=== PATIENT | male | born 1970 | race Caucasian/White ===

== ENCOUNTER 2020-06-17 11:47 | Inpatient (IN) | payer OTHER, SELFPAY ==
[2020-06-17] VITALS (20 sets, daily range): BP systolic 99–120; BP diastolic 44–74; PULSE 77–103; RESP 10–26; TEMP 36.8–38.8; O2SAT 91–100; BMI 29.7
--- NOTE | 2020-06-17 | PATH_ITS ---
[facility] Accession Number: [id number] . 01 Material submitted: . appendix - APPENDIX . 01 Clinical history: . ABDOMINAL PAIN . 02 Diagnosis: Appendix, Appendectomy: Marked acute appendicitis with perforation and serositis. Fibrous obliteration of the tip of the appendix. No evidence of neoplasm. MRV 06/20/2020 1002 Local . 02 Electronically signed: . Weston Hill MD, PhD, Pathologist NPI- [id number] . 01 Gross description: . The specimen is received in formalin, labeled appendix and consists of a 7.2 cm in length by 1.5 cm in diameter vermiform appendix with attached echavarria-yellow lobulated mesoappendix measuring 6.5 x 2.0 x 1.5 cm. The serosa is echavarria-pink to echavarria-davis with purulent exudate and a 0.5 x 0.5 cm area of disruption near the tip. Sectioning reveals a echavarria mucosa and a lumen measuring up to 0.7 cm in diameter, which contains brown fecal material. There is a perforation site located 3.4 cm from the margin. Water Quality Technician sections are submitted to include the perforation site, margin (blue) and bisected tip in cassettes A1-A2. ([id number]) /MRV 06/19/2020 1627 Local . 02 Pathologist provided ICD-10: K35.20 . 02 CPT . 070887 Performed at: 01 [facility] [address] [place] [address], [place], [place] [id number] MD Akira Guadalupe MD Phone: [phone] Performed at: 02 [facility] [address] [place], [place] [id number] MD Dang Conn MD Phone: [phone]
--- NOTE | 2020-06-17 12:26 | DI.CT.S_ITS ---
PROCEDURE: CT ABDOMEN PELVIS W CON INDICATIONS: IV contrast only/right lower quadrant pain TECHNIQUE: After the administration of intravenous contrast, 5 mm thick sections acquired from the diaphragm to the symphysis. 5 mm coronal and sagittal reformats were acquired. For radiation dose reduction, the following was used: automated exposure control, adjustment of mA and/or kV according to patient size. COMPARISON: None. FINDINGS: Image quality: Excellent. ABDOMEN: Lung bases: Lung bases are clear. Heart size is normal. Solid organs: Liver is normal in size and enhancement. Gallbladder is within normal limits. Biliary system is non dilated. Pancreas enhances normally. Spleen is normal in size and enhancement. No adrenal nodules. Kidneys demonstrate normal size and enhancement, without hydronephrosis. Peritoneum and bowel: Bowel loops demonstrate normal wall thickness and caliber. No free air. The appendix is enlarged to 1.5 centimeters. Periappendiceal inflammation and trace fluid noted. Small, 3-4 millimeter appendicoliths noted near the base of the appendix. Small amount of free fluid noted in the lower pelvis. Nodes and vessels: No retroperitoneal or mesenteric adenopathy by size criteria. Aorta and inferior vena cava are normal in size. Miscellaneous: No ventral hernias. PELVIS: Genitourinary: Bladder wall thickness is normal. Miscellaneous: No inguinal hernias or adenopathy. Bones: No suspicious bony lesions. No vertebral body compression fractures. IMPRESSION: Enlarged appendix with periappendiceal inflammation compatible with acute appendicitis with small appendicoliths. Dictated by: Cristal Hammonds MD, PhD on 06/17/2020 at 13:06 Approved by: Cristal Hammonds MD, PhD on 06/17/2020 at 13:09
--- NOTE | 2020-06-17 12:31 | ED.ABDPAIN ---
HPI - Abdominal Pain General Chief Complaint: Abdominal Pain Stated Complaint: Abdominal Pain Time Seen by Provider: 06/17/20 12:02 Source: patient and family Mode of arrival: Ambulatory Limitations: no limitations History of Present Illness HPI narrative: Patient complains 24 hours of right lower quadrant pain. Nausea but no vomiting has felt chills and subjective fever. Painful right lower quadrant worse with movement. No urinary complaints. No bowel complaints. No previous abdominal surgical history. Pain is sharp. And is constant complaint: abdominal pain Related Data Home Medications Medication Instructions Recorded Confirmed No Known Home Medications 06/17/20 06/17/20 Allergies Allergy/AdvReac Type Severity Reaction Status Date / Time codeine AdvReac Verified 06/17/20 12:39 Review of Systems Review of Systems Narrative: GENERAL: Complaint chills, denies fatigue, malaise, fever, complaint sweats. HEENT: Denies sinus pain, ear pain, sore throat RESPIRATORY: Denies dyspnea, cough CARDIOVASCULAR: Denies chest pain, palpitations GASTROINTESTINAL: Complains nausea, denies vomiting, complains abdominal pain : Denies dysuria, frequency, hematuria MUSCULOSKELETAL: denies muscle or bony pain SKIN: Denies rash, skin lesions NEUROLOGIC: Denies weakness, numbness ROS Unobtainable: All systems reviewed & are unremarkable except as noted in HPI and below Patient History Social History household members: spouse Smoking Status: Former smoker alcohol intake: current Smoking Status: Former smoker tobacco type: cigarettes alcohol intake frequency: 0-2 drinks per day Substance Use Type: does not use Exam Narrative Exam Narrative: GENERAL: in no distress, not toxic not dyspneic HEAD: Normocephalic. EYES: Pupils equal round No scleral icterus. No injection no discharge ENT: Mucous membranes moist. NECK: Trachea midline. CARDIOVASCULAR: Regular rate and rhythm without murmurs RESPIRATORY: Clear to auscultation. Breath sounds equal bilaterally. No wheezes, rales, or rhonchi. GASTROINTESTINAL: Abdomen soft, reproducible right lower quadrant tenderness. Tender McBurney point, bowel sounds present. No peritoneal signs EXTREMITIES: No gross deformities. NEURO: AOx4. SKIN: Warm and dry PSYCH: Not anxious, is cooperative Initial Vital Signs Initial Vital Signs: Vital Signs Temperature 99.9 F H 06/17/20 12:09 Pulse Rate 100 H 06/17/20 12:09 Respiratory Rate 26 H 06/17/20 12:09 Blood Pressure 120/66 06/17/20 12:09 Pulse Oximetry 100 06/17/20 12:09 Course Course Course Narrative: No new issues during course of stay. No side effects/allergic reaction to pain medications Decision to Admit Date: 06/17/20 Decision to Admit time: 13:20 Orders Ordered: ED Orders 06/17/20 12:17 Comprehensive Metabolic Panel Stat Lipase Stat Partial Thromboplastin Time Stat Prothrombin Time INR Stat 06/17/20 12:20 Complete Blood Count AUTO DIFF Stat 06/17/20 12:26 CT abdomen pelvis w con Stat 06/17/20 13:18 COVID19 Stat Acetaminophen (Acetaminophen 325 Mg Tablet) 650 mg PO Q6HR PRN PRN Reason: Pain, Mild (1-3) Diphenhydramine HCl (Diphenhydramine 50 Mg/Ml Vial) 25 mg IV Q6HR PRN PRN Reason: Itching Docusate Sodium (Docusate 100 Mg Capsule) 100 mg PO BID PRN PRN Reason: Constipation Enoxaparin Sodium (Enoxaparin 40 Mg/0.4 Ml Syringe) 40 mg SUBCUT DAILY [facility] Hydromorphone HCl (Hydromorphone 1 Mg Inj) 0.5 mg IV Q4HR PRN PRN Reason: Pain, Severe (7-10) Lactated Ringer's (Lactated Ringers) 1,000 mls @ 120 mls/hr IV CONT [facility] Last Admin: 06/17/20 16:44 Dose: 120 mls/hr Documented by: SHAHRAM Piperacillin/Tazobactam/Dextrose (Zosyn) 3.375 gm in 50 mls @ 100 mls/hr IV Q6H [facility] Last Admin: 06/17/20 17:10 Dose: 100 mls/hr Documented by: DIVYA Ketorolac Tromethamine (Ketorolac 30 Mg/Ml Vial) 30 mg IV Q6HR PRN PRN Reason: Pain, Moderate (4-6) Stop: 06/22/20 16:05 Naloxone HCl (Naloxone 0.4 Mg/Ml Vial) 0.2 mg IV Q2MIN PRN PRN Reason: Opiate Reversal Ondansetron HCl (Ondansetron 4 Mg/2 Ml Inj) 4 mg IV Q4HR PRN PRN Reason: Nausea And Vomiting Oxycodone HCl (Oxycodone Ir 5 Mg Tablet) 5 mg PO Q6HR PRN PRN Reason: Pain, Moderate (4-6) Phenazopyridine HCl (Phenazopyridine 100 Mg Tablet) 100 mg PO TID PRN PRN Reason: urinary discomfort Discontinued Medications Acetaminophen (Acetaminophen 325 Mg Tablet) 975 mg PO NOW ONE Stop: 06/17/20 13:15 Last Admin: 06/17/20 13:19 Dose: 975 mg Documented by: JUVENAL Bupivacaine HCl/Epinephrine Bitart (Bupivacaine 0.5% W/ Epi (Pf) 30 Ml Vial) 30 ml INJ NOW ONE Stop: 06/17/20 14:45 Last Admin: 06/17/20 14:45 Dose: 30 ml Documented by: RENATA Fentanyl (Fentanyl 100 Mcg/2 Ml Inj) 0 mcg IV Q5MIN PRN PRN Reason: Pain, Severe (7-10) Hydromorphone HCl (Hydromorphone 1 Mg Inj) 1 mg IV NOW ONE Stop: 06/17/20 13:06 Last Admin: 06/17/20 13:11 Dose: 1 mg Documented by: JUVENAL Hydromorphone HCl (Hydromorphone 2 Mg Inj) 0 mg IV Q5MIN PRN PRN Reason: Pain, Mild (1-3) Sodium Chloride (Normal Saline 0.9%) 1,000 mls @ 1,000 mls/hr IV BOLUS ONE Stop: 06/17/20 13:25 Last Infusion: 06/17/20 14:06 Dose: 0 mls/hr Documented by: Infusion: 06/17/20 12:52 Dose: 0 mls/hr Documented by: Admin: 06/17/20 12:40 Dose: 1,000 mls/hr Documented by: AGATA Ceftriaxone Sodium/Dextrose (Rocephin) 2 gm in 50 mls @ 100 mls/hr IV NOW ONE Stop: 06/17/20 13:35 Last Infusion: 06/17/20 14:06 Dose: 0 mls/hr Documented by: Admin: 06/17/20 13:14 Dose: 100 mls/hr Documented by: JUVENAL Lactated Ringer's (Lactated Ringers) 1,000 mls @ 42 mls/hr IV CONT NADIA Last Infusion: 06/17/20 16:14 Dose: 0 mls/hr Documented by: Admin: 06/17/20 15:01 Dose: 42 mls/hr Documented by: Infusion: 06/17/20 15:01 Dose: 42 mls/hr Documented by: Admin: 06/17/20 14:14 Dose: 42 mls/hr Documented by: MILY Morphine Sulfate (Morphine 4 Mg/Ml Inj) 4 mg IV NOW ONE Stop: 06/17/20 12:27 Last Admin: 06/17/20 12:40 Dose: 4 mg Documented by: AGATA Ondansetron HCl (Ondansetron 4 Mg/2 Ml Inj) 4 mg IV NOW ONE Stop: 06/17/20 12:27 Last Admin: 06/17/20 12:40 Dose: 4 mg Documented by: AGATA Ondansetron HCl (Ondansetron 4 Mg/2 Ml Inj) 4 mg IV NOW PRN PRN Reason: Nausea And Vomiting Oxycodone HCl (Oxycodone Ir 5 Mg Tablet) 5 mg PO PACUNOW PRN PRN Reason: Mild or moderate pain Reevaluation(s) Reevaluation #1: Updated patient and results. Understand needs surgical intervention Time: 13:20 Consultations Consultation #1: Spoke with general surgery Dr. Kohli, will admit, will take to the operating room Time: 13:20 Vital Signs Vital signs: Vital Signs - 8 hr 06/17/20 12:09 06/17/20 12:43 06/17/20 13:02 Temperature 99.9 F H Pulse Rate 100 H 99 H 98 H Respiratory Rate 26 H Blood Pressure 120/66 Pulse Oximetry 100 99 99 06/17/20 13:05 06/17/20 13:09 06/17/20 13:10 Temperature 102 F H Pulse Rate 97 H 94 H Respiratory Rate 18 Blood Pressure 115/64 115/64 Pulse Oximetry 98 99 06/17/20 13:30 Temperature Pulse Rate 100 H Respiratory Rate Blood Pressure 118/65 Pulse Oximetry 97 MDM - Abdominal Pain Differential Diagnosis Differential diagnosis: Likely abdominal pain, acute appendicitis and calculus of kidney Lab Data Attestation: I reviewed the patient's lab results. Result diagrams: 06/17/20 12:20 02/21/21 12:17 Labs: Lab Results 06/17/20 06/17/20 06/17/20 Range/Units 12:17 12:17 12:17 WBC Cancelled RBC Cancelled Hgb Cancelled Hct Cancelled MCV Cancelled MCH Cancelled MCHC Cancelled RDW Cancelled Plt Count Cancelled Neut % (Auto) Cancelled Lymph % (Auto) Cancelled [place] % (Auto) Cancelled Eos % (Auto) Cancelled Baso % (Auto) Cancelled Neut # (Auto) Cancelled Lymph # (Auto) Cancelled [place] # (Auto) Cancelled Eos # (Auto) Cancelled Baso # (Auto) Cancelled PT 13.2 H (10.1-12.7) SECONDS INR 1.1 (0.9-1.3) APTT 30 (26.4-36.2) SECONDS Sodium 134 L (137-145) mmol/L Potassium 3.7 (3.4-5.1) mmol/L Chloride 100 (98-107) mmol/L Carbon Dioxide 26 (22-32) mmol/L BUN 10 (9-20) mg/dL Creatinine 0.75 (0.66-1.25) mg/dL Estimated GFR > 60.0 (>60) mL/min BUN/Creatinine Ratio 13.3 (6-22) Glucose 147 H (70-100) mg/dL Calcium 9.1 (8.4-10.2) mg/dL Total Bilirubin 0.8 (0.2-1.3) mg/dL AST 28 (17-59) IU/L ALT 25 (<50) IU/L Alkaline Phosphatase 97 (38-126) U/L Total Protein 8.0 (6.3-8.2) g/dL Albumin 4.6 (3.5-5.0) g/dL Globulin 3.4 (1.7-4.1) g/dL Albumin/Globulin Ratio 1.4 (1.0-2.8) Lipase 18 L (23-300) U/L SARS-CoV-2 (PCR) (Negative) 06/17/20 06/17/20 Range/Units 12:20 13:18 WBC 21.9 H RBC 4.94 Hgb 15.4 Hct 44.9 MCV 90.9 MCH 31.1 MCHC 34.2 RDW 12.9 Plt Count 218 Neut % (Auto) 92.8 H Lymph % (Auto) 2.0 L [place] % (Auto) 5.1 Eos % (Auto) 0.0 L Baso % (Auto) 0.1 Neut # (Auto) 41278 H Lymph # (Auto) 400 L [place] # (Auto) 1100 H Eos # (Auto) 0 Baso # (Auto) 0 PT (10.1-12.7) SECONDS INR (0.9-1.3) APTT (26.4-36.2) SECONDS Sodium (137-145) mmol/L Potassium (3.4-5.1) mmol/L Chloride (98-107) mmol/L Carbon Dioxide (22-32) mmol/L BUN (9-20) mg/dL Creatinine (0.66-1.25) mg/dL Estimated GFR (>60) mL/min BUN/Creatinine Ratio (6-22) Glucose (70-100) mg/dL Calcium (8.4-10.2) mg/dL Total Bilirubin (0.2-1.3) mg/dL AST (17-59) IU/L ALT (<50) IU/L Alkaline Phosphatase (38-126) U/L Total Protein (6.3-8.2) g/dL Albumin (3.5-5.0) g/dL Globulin (1.7-4.1) g/dL Albumin/Globulin Ratio (1.0-2.8) Lipase (23-300) U/L SARS-CoV-2 (PCR) Negative (Negative) Imaging Data CT scan - abdomen/pelvis: Radiologist's Impression: [address] [id number] Scan ReportSigned Patient: Brandon Guzmán [facility]#: [id number]: 1970Acct:[id number]/Sex: 49 / MDate of Service: 06/17/20Loc: EDAccession Number: [id number] Procedure: CT abdomen pelvis w con Ordering Provider: Jameson Natarajan MD PROCEDURE: CT ABDOMEN PELVIS W CON INDICATIONS: IV contrast only/right lower quadrant pain TECHNIQUE: After the administration of intravenous contrast, 5 mm thick sections acquired from the diaphragm to the symphysis. 5 mm coronal and sagittal reformats were acquired. For radiation dose reduction, the following was used: automated exposure control, adjustment of mA and/or kV according to patient size. COMPARISON: None. FINDINGS: Image quality: Excellent. ABDOMEN: Lung bases: Lung bases are clear. Heart size is normal. Solid organs: Liver is normal in size and enhancement. Gallbladder is within normal limits. Biliary system is non dilated. Pancreas enhances normally. Spleen is normal in size and enhancement. No adrenal nodules. Kidneys demonstrate normal size and enhancement, without hydronephrosis. Peritoneum and bowel: Bowel loops demonstrate normal wall thickness and caliber. No free air. The appendix is enlarged to 1.5 centimeters. Periappendiceal inflammation and trace fluid noted. Small, 3-4 millimeter appendicoliths noted near the base of the appendix. Small amount of free fluid noted in the lower pelvis. Nodes and vessels: No retroperitoneal or mesenteric adenopathy by size criteria. Aorta and inferior vena cava are normal in size. Miscellaneous: No ventral hernias. PELVIS: Genitourinary: Bladder wall thickness is normal. Miscellaneous: No inguinal hernias or adenopathy. Bones: No suspicious bony lesions. No vertebral body compression fractures. IMPRESSION: Enlarged appendix with periappendiceal inflammation compatible with acute appendicitis with small appendicoliths. Dictated by: Cristal Hammonds MD, PhD on 06/17/2020 at 13:06 Approved by: Cristal Hammonds MD, PhD on 06/17/2020 at 13:09 [facility] Narrative Medical decision making narrative: Appropriate for admission. Antibiotics started. Keeping NPO. Discharge Plan Departure Patient Disposition: Admitted as Observation Clinical Impression: Acute appendicitis Qualifiers: Acute appendicitis type: unspecified acute appendicitis type Qualified Code(s): K35.80 - Unspecified acute appendicitis Admit Date/Time: 06/17/20 13:31 Admit Provider: Celestina Nolan
[2020-06-17 12:33] LABS: Add Manual Diff / Slide Review NO; Basophils Absolute Auto 0 /uL (0-100); Basophils Percent Auto 0.1 % (0-2); Eosinophils Absolute Auto 0 /uL (0-450); Hematocrit 44.9 % (41-53); Hemoglobin 15.4 g/dL (13.5-17.5); Lymphocytes Absolute Auto 400 /uL (1100-4500); Mean Corpuscular HGB Conc 34.2 % (30-36); Mean Corpuscular Hemoglobin 31.1 PG (26-34); Mean Corpuscular Volume 90.9 fL (80-100); Monocytes Absolute Auto 1100 /uL (0-900); Monocytes Percent Auto 5.1 % (3-14); Neutrophils Absolute Auto 20300 /uL (1500-7000); Neutrophils Percent Auto 92.8 % (50-75); Platelet Count 218 X10^3/uL (150-400); Red Blood Cell Count 4.94 X10^6/uL (4.5-5.9); Red Cell Distribution Width 12.9 % (11.6-14.8)
[2020-06-17 12:34] LABS: White Blood Cell Count 21.9 X10^3/uL (4.5-11.0)
[2020-06-17] MEDS: ONDANSETRON 4 MG/2 ML INJ IV (12:40)
[2020-06-17] MEDS: MORPHINE 4 MG/ML INJ IV (12:40)
[2020-06-17] MEDS: SODIUM CHLORIDE 0.9% 1,000 ML 1000 ML IV (12:40)
[2020-06-17 12:46] LABS: INR 1.1 (0.9-1.3); Prothrombin Time 13.2 SECONDS (10.1-12.7)
[2020-06-17 12:48] LABS: PTT Partial Thromboplastin Tim 30 SECONDS (26.4-36.2)
[2020-06-17 12:54] LABS: Alanine Aminotransferase 25 IU/L (<50); Albumin 4.6 g/dL (3.5-5.0); Albumin Globulin Ratio 1.4 (1.0-2.8); Alkaline Phosphatase 97 U/L (38-126); Aspartate Aminotransferase 28 IU/L (17-59); BUN Creatinine Ratio 13.3 (6-22); Bilirubin Total 0.8 mg/dL (0.2-1.3); Blood Urea Nitrogen 10 mg/dL (9-20); Calcium 9.1 mg/dL (8.4-10.2); Carbon Dioxide 26 mmol/L (22-32); Chloride 100 mmol/L (98-107); Estimated Glomerular Filt Rate > 60.0 mL/min (>60); Globulin 3.4 g/dL (1.7-4.1); Glucose 147 mg/dL (70-100); HEMOLYSIS 31 (0-50); Lipase 18 U/L (23-300); Potassium 3.7 mmol/L (3.4-5.1); Sodium 134 mmol/L (137-145)
[2020-06-17] MEDS: HYDROMORPHONE 1 MG INJ IV (13:11)
[2020-06-17] MEDS: CEFTRIAXONE 2 GM/50 ML FROZ.PIGGY IV (13:14)
[2020-06-17] MEDS: ACETAMINOPHEN 325 MG TABLET 975 MG PO (13:19)
--- NOTE | 2020-06-17 13:42 | PC.NURSE ---
Dr. Nolan at bedside.
--- NOTE | 2020-06-17 13:55 | P.HP_ITS ---
History of Present Illness History of Present Illness Date Patient Seen: 06/17/20 Time Patient Seen: 13:55 Chief complaint: Abdominal Pain Narrative: This is a 49-year-old man who started having abdominal pain yesterday morning. It was generalized initially, and then became focal in the right lower quadrant. Nausea without vomiting. Has chills and subjective fever. Denies urinary complaints. Came into the ER and had a white count of 21, a fever of 102, and a CT scan consistent with acute appendicitis, with some periappendiceal fluid and fat stranding. He has never had colonoscopy. He has no primary relatives with known IBD, colon cancer, or colon polyps. He denies any personal history of GI symptoms, prior to this event. ROS: GENERAL: Complaint chills, denies fatigue, malaise, fever, complaint sweats. HEENT: Denies sinus pain, ear pain, sore throat RESPIRATORY: Denies dyspnea, cough CARDIOVASCULAR: Denies chest pain, palpitations GASTROINTESTINAL: Complains nausea, denies vomiting, complains abdominal pain : Denies dysuria, frequency, hematuria MUSCULOSKELETAL: denies muscle or bony pain SKIN: Denies rash, skin lesions NEUROLOGIC: Denies weakness, numbness Patient History Family & Social History Safety & Behavioral: Been Physically Hurt or No Threatened By a Person Tobacco & Substance use: Smoking Status Former smoker alcohol intake frequency 0-2 drinks per day Substance Use Type does not use Meds Home Medications and Allergies Allergies Allergy/AdvReac Type Severity Reaction Status Date / Time codeine AdvReac Verified 06/17/20 12:39 Exam Vital Signs (past 8 hours): - 06/17/20 12:09 06/17/20 12:43 06/17/20 13:02 Temperature 99.9 F H Pulse Rate 100 H 99 H 98 H Respiratory Rate 26 H Blood Pressure 120/66 Pulse Oximetry 100 99 99 06/17/20 13:05 06/17/20 13:09 06/17/20 13:10 Temperature 102 F H Pulse Rate 97 H 94 H Respiratory Rate 18 Blood Pressure 115/64 115/64 Pulse Oximetry 98 99 06/17/20 13:30 Temperature Pulse Rate 100 H Respiratory Rate Blood Pressure 118/65 Pulse Oximetry 97 Oxygen Delivery Method Room Air Objective Imaging CT scan - abdomen: Radiologist's impression: [address] [id number] Scan ReportSigned Patient: Brandon Guzmná [facility]#: [id number]: 1970Acct:[id number]/Sex: 49 / MDate of Service: 06/17/20Loc: EDAccession Number: [id number] Procedure: CT abdomen pelvis w con Ordering Provider: Jameson Natarajan MD PROCEDURE: CT ABDOMEN PELVIS W CON INDICATIONS: IV contrast only/right lower quadrant pain TECHNIQUE: After the administration of intravenous contrast, 5 mm thick sections acquired from the diaphragm to the symphysis. 5 mm coronal and sagittal reformats were acquired. For radiation dose reduction, the following was used: automated exposure control, adjustment of mA and/or kV according to patient size. COMPARISON: None. FINDINGS: Image quality: Excellent. ABDOMEN: Lung bases: Lung bases are clear. Heart size is normal. Solid organs: Liver is normal in size and enhancement. Gallbladder is within normal limits. Biliary system is non dilated. Pancreas enhances normally. Spleen is normal in size and enhancement. No adrenal nodules. Kidneys demonstrate normal size and enhancement, without hydronephrosis. Peritoneum and bowel: Bowel loops demonstrate normal wall thickness and caliber. No free air. The appendix is enlarged to 1.5 centimeters. Periappendiceal inflammation and trace fluid noted. Small, 3-4 millimeter appendicoliths noted near the base of the appendix. Small amount of free fluid noted in the lower pelvis. Nodes and vessels: No retroperitoneal or mesenteric adenopathy by size criteria. Aorta and inferior vena cava are normal in size. Miscellaneous: No ventral hernias. PELVIS: Genitourinary: Bladder wall thickness is normal. Miscellaneous: No inguinal hernias or adenopathy. Bones: No suspicious bony lesions. No vertebral body compression fractures. IMPRESSION: Enlarged appendix with periappendiceal inflammation compatible with acute appendicitis with small appendicoliths. Dictated by: Cristal Hammonds MD, PhD on 06/17/2020 at 13:06 Labs Result Diagrams: 06/17/20 12:20 06/17/20 12:17 Labs: Laboratory Results - last 24 hr 06/17/20 06/17/20 06/17/20 12:17 12:17 12:17 WBC Cancelled RBC Cancelled Hgb Cancelled Hct Cancelled MCV Cancelled MCH Cancelled MCHC Cancelled RDW Cancelled Plt Count Cancelled Neut % (Auto) Cancelled Lymph % (Auto) Cancelled Long % (Auto) Cancelled Eos % (Auto) Cancelled Baso % (Auto) Cancelled Neut # (Auto) Cancelled Lymph # (Auto) Cancelled Long # (Auto) Cancelled Eos # (Auto) Cancelled Baso # (Auto) Cancelled PT 13.2 H INR 1.1 APTT 30 Sodium 134 L Potassium 3.7 Chloride 100 Carbon Dioxide 26 BUN 10 Creatinine 0.75 Estimated GFR > 60.0 BUN/Creatinine Ratio 13.3 Glucose 147 H Calcium 9.1 Total Bilirubin 0.8 AST 28 ALT 25 Alkaline Phosphatase 97 Total Protein 8.0 Albumin 4.6 Globulin 3.4 Albumin/Globulin Ratio 1.4 Lipase 18 L 06/17/20 12:20 WBC 21.9 H RBC 4.94 Hgb 15.4 Hct 44.9 MCV 90.9 MCH 31.1 MCHC 34.2 RDW 12.9 Plt Count 218 Neut % (Auto) 92.8 H Lymph % (Auto) 2.0 L Long % (Auto) 5.1 Eos % (Auto) 0.0 L Baso % (Auto) 0.1 Neut # (Auto) 36392 H Lymph # (Auto) 400 L Long # (Auto) 1100 H Eos # (Auto) 0 Baso # (Auto) 0 PT INR APTT Sodium Potassium Chloride Carbon Dioxide BUN Creatinine Estimated GFR BUN/Creatinine Ratio Glucose Calcium Total Bilirubin AST ALT Alkaline Phosphatase Total Protein Albumin Globulin Albumin/Globulin Ratio Lipase Assessment & Plan Assessment and plan (1) Acute appendicitis: Qualifiers: Acute appendicitis type: unspecified acute appendicitis type Qualified Code(s): K35.80 - Unspecified acute appendicitis Status: Acute (2) Appendicolith: Status: Acute Assessment & Plan narrative: This is a 49-year-old man with acute appendicitis, with appendicoliths present. Given his fever and significant white count, as well as the appearance of his CT scan, I am concerned that he is at high risk for abdominal sepsis and is already meeting several sirs criteria. He is therefore not a good candidate for delay, or for nonsurgical treatment. We discussed the risks and benefits of laparoscopic possible open appendectomy. He asked about alternatives to appendectomy, and I did explain to him that given he has the fecaliths present he has 100% chance of recurrent appendicitis within 2 years. I explained that the severity of his labs, vitals and symptoms are al so consistent with impending sepsis, making non surgical treatment a poor option for him. The risks of surgery were discussed including risk of bleeding, infection, damage to nearby structures, need for additional procedures, need for open surgery, hernia formation, bowel obstruction, pelvic abscess, post appy bleed, post appy leak. The patient desires to proceed with surgery. Plan: NPO, IV fluids, IV antibiotic Proceed to OR for laparoscopic possible open appendectomy COVID-19 COVID-19 status: Negative Result date/Date tested (Pos, Neg/Pending): 06/17/20 Time Spent With Patient Time with patient: 25 - 35 minutes Quality VTE Deep Vein Thrombosis/Pulmonary Embolism Present on Admission: No
[2020-06-17 13:58] LABS: COVID19 -Nasal RAPID Negative (Negative)
[2020-06-17] MEDS: LACTATED RINGERS 1,000 ML 42 ML IV ×2 (14:14→15:01)
--- NOTE | 2020-06-17 14:36 | SUR.OPER ---
Supine on padded OR bed, head on pillow, left arm padded and tucked at side, right arm on secured on padded arm board with <90degrees abduction, legs uncrossed, safety belt at thigh, tape over blanket over lower legs .
[2020-06-17] MEDS: BUPIVACAINE 0.5% W/ EPI (PF) 30 ML VIAL INJ (14:45)
--- NOTE | 2020-06-17 16:09 | P.OP_ITS ---
Operative Date/Time/Diagnoses Date of procedure: 06/17/20 Time of procedure: 16:09 Pre-op diagnosis: Acute appendicitis, impending sepsis Post-op diagnosis: other (acute perforated appendicitis with copious purulent fluid throughout the abdomen) Procedure & Clinicians Procedure: laparoscopic appendectomy, evacuation of purulent fluid and stool Same procedure as scheduled: Yes Indications: Acute appendicitis and impending sepsis Surgeon: Celestina Nolan Anesthesia Type: General Operative Notes Findings: Perforated appendix with purulent fluid throughout the abdomen, hyperemic small bowel, with intra-loop abscesses Specimen(s): other (appendix) Estimated Blood Loss (mL): 15 Procedure in detail: The patient was brought into the operating room and placed supine on the OR table. Sequential compression devices were placed on both legs and turned on. Appropriate antibiotics were given prior to the start of surgery. General anesthesia was induced the patient was intubated. Lucas catheter was placed sterilely in the bladder. The abdomen was prepped and draped in sterile fashion. Surgical time-out was conducted. Local anesthetic was injected under the skin just superior to the umbilicus and a 5 mm vertical incision was made at this site. The umbilical stalk was grasped with a Alfonso and elevated. A Veress needle was passed through the fascia into proper position. The position was tested with a saline drop test which was appropriate for intra-abdominal Veress needle placement. The abdomen was then insufflated in the usual fashion. Once insufflated to 15 mm Hg the Veress needle was removed and a 5 mm optical trocar was placed under direct vision using a 5 mm 30 degree scope. Once the camera was inside the abdomen I took a look around. There was no injury from port placement. Copious purulent fluid, intra-loop abscesses and hyperemic small bowel were noted on my initial look. Two additional ports were placed in a similar fashion in the suprapubic position and left lower quadrant. The umbilical port was upsized to a 12 mm port. I took a look at the cecum and right lower quadrant. In addition to copious purulent fluid, a thickened, hyperemic appendix was seen, with thickened phlegmonous mesoappendix and ileal sail. The mid appendix was perforated, and there was stool draining out of that perforation. Suction was used to clear away the visible purulent fluid and draining stool. The distal end of the appendix was grasped and elevated. I carefully took down the mesoappendix with Ligasure and dissected out the base of the appendix where it entered into the cecum. There was significant phlegmon and inflammatory fat tissue around the cecum, and base of the appendix. I carefully dissected around this using LigaSure, until the base of the appendix was clearly visible. A blue load Endo- MARIUM stapler was used to staple across the cecum just below the base of the appendix. The specimen was removed the abdomen in an Endo-Catch bag. There was good hemostasis at the staple line. On the medial/ileal side of the cecum, the staple line was oversewn with a 3-0 silk Lemberted suture to reinforce. The appendix was passed off the table for pathology. I then took another look at the right lower quadrant, and irrigated to check for any ongoing bleeding. There was no evidence of ongoing bleeding. I then took a look around the entire abdomen, irrigated, and suctioned out copious purulent fluid from the right upper quadrant left and right gutters, and the pelvis. There was also some pus seen between loops of bowel, and this was irrigated and suctioned clean. I placed a Ray-Gustavo in the abdomen and used it to sop up any remaining purulent fluid. The raytec was removed. I again irrigated and suctioned 1 more time, before closing. I then used the laparoscopic suture passer and closed the umbilical port site with 0 Vicryl suture through the fascia. Local anesthetic was used in this site and the other 2 port sites for a total of 30 mL of 0.5% Marcaine with epi for the entire case. At this point the insufflation was removed from the abdomen and the port sites were closed with, 3-0 Vicryl in the subcutaneous layers, and 4 Monocryl in the skin. Each port site was sealed with Dermabond. Local anesthetic was given at each of the port sites and in the fascia. This concluded the procedure. At this point the needle, sponge, and instrument counts were correct. The patient was awakened from anesthesia and extubated. Lucas catheter was removed without incident. The patient was transferred to the postanesthesia care unit in stable condition. Complications: none Post-operative Condition: stable Disposition: PACU
--- NOTE | 2020-06-17 16:14 | SUR.PHASEI ---
Patient requesting to use urinal. Denies any abdominal pain from surgery. Denies any nausea. VSS. Patient continuously talking to nurse.
[2020-06-17] MEDS: LACTATED RINGERS 1,000 ML 120 ML IV (16:44)
[2020-06-17] MEDS: PIPERACILLIN-TAZO 3.375 GM/50 ML FROZ.PIGGY IV ×2 (17:10→22:35)
[2020-06-17] MEDS: KETOROLAC 30 MG/ML VIAL IV (21:22)
[2020-06-18 00:16] VITALS: BP 96/51; PULSE 83; RESP 18; TEMP 37; O2SAT 93
[2020-06-18] MEDS: ACETAMINOPHEN 325 MG TABLET 650 MG PO (02:02)
[2020-06-18] MEDS: LACTATED RINGERS 1,000 ML 120 ML IV ×2 (02:05→11:51)
[2020-06-18 03:48] VITALS: BP 97/48; PULSE 68; RESP 16; TEMP 37.1; O2SAT 94
[2020-06-18] MEDS: PIPERACILLIN-TAZO 3.375 GM/50 ML FROZ.PIGGY IV ×4 (04:38→22:26)
[2020-06-18 05:25] LABS: Add Manual Diff / Slide Review NO; Basophils Absolute Auto 0 /uL (0-100); Basophils Percent Auto 0.2 % (0-2); Eosinophils Absolute Auto 0 /uL (0-450); Hematocrit 37.3 % (41-53); Hemoglobin 12.5 g/dL (13.5-17.5); Lymphocytes Absolute Auto 900 /uL (1100-4500); Lymphocytes Percent Auto 4.5 % (25-40); Mean Corpuscular HGB Conc 33.4 % (30-36); Mean Corpuscular Hemoglobin 30.4 PG (26-34); Mean Corpuscular Volume 90.9 fL (80-100); Monocytes Absolute Auto 1200 /uL (0-900); Monocytes Percent Auto 5.9 % (3-14); Neutrophils Absolute Auto 18000 /uL (1500-7000); Neutrophils Percent Auto 89.4 % (50-75); Platelet Count 177 X10^3/uL (150-400); Red Cell Distribution Width 12.9 % (11.6-14.8); White Blood Cell Count 20.1 X10^3/uL (4.5-11.0)
[2020-06-18] MEDS: OXYCODONE IR 5 MG TABLET PO (05:25)
[2020-06-18 05:40] LABS: BUN Creatinine Ratio 16.9 (6-22); Blood Urea Nitrogen 14 mg/dL (9-20); Calcium 8.4 mg/dL (8.4-10.2); Carbon Dioxide 28 mmol/L (22-32); Chloride 104 mmol/L (98-107); Estimated Glomerular Filt Rate > 60.0 mL/min (>60); Glucose 117 mg/dL (70-100); HEMOLYSIS < 15 (0-50); Phosphorous 3.9 mg/dL (2.5-4.5); Sodium 135 mmol/L (137-145)
[2020-06-18 08:00] VITALS: BP 111/73; PULSE 85; RESP 18; TEMP 36.8; O2SAT 94
--- NOTE | 2020-06-18 08:54 | CM.DANOTE ---
Addendum entered by Faye Houston R.N. 06/18/20 14:03: Patient called this associate media planner's phone inquiring when can he go home. Asked him if surgeon has come in to see him as of yet, and he stated, he has not yet seen the surgeon. Asked nurse, Lien. She stated that she has already spoken to patient, and let him know that surgeon should be in some time after 2:00pm,due to back to back surgeries. If patient calls again, will update him. Original Note: DCP: Case received, EMR reviewed and met with patient. Introduced self and role. Was able to obtain information from patient regarding his baseline activity status prior to hospitalization. DCP assessment completed with information currently available. Patient is a 49 year old male who admitted yesterday afternoon to the care of the hospitalist/surgical team. PCP: Dr. Fernández. Payer: confirmed: BS Out of [facility]. Patient came to the hospital via private vehicle secondary to having right lower quadrant pain. Patient was diagnosed with an acute appendicitis. Patiet had laparoscopic appendectomy yesterday. Met with patient in his room. She is alert and oriented, pleasant. Confirmed that patient resides here in [place] with his spouse, Dorene. He is independent at baseline, and is employed at [employer]. Confirmed that Dr. Fernández is his primary provider, but stated, I haven't seen him, I haven't been to the doctor's in a long time. P: DCP to continue to follow. Patient should be able to go home when he is medically stable. Faye Houston RN/Sod Farmer
[2020-06-18] MEDS: ENOXAPARIN 40 MG/0.4 ML SYRINGE SUBCUT (09:12)
--- NOTE | 2020-06-18 11:31 | PC.NURSE ---
Addendum entered by Naina Toro R.N. 06/18/20 15:04: Dr. Wyatt made aware of pt's fasting status. Addendum entered by Naina Toro R.N. 06/18/20 13:10: pt agreed to have some veggie broth and called nursing staff when he heard/felt his stomach make noise. Hypoactive bowel tones noted. 6/10 pain reported and 30mg Toradol administered IV. Original Note: AM Shift note. pt AO and calling appropriately. pt declining to eat and stating that he is fasting. He starting fasting this past Thursday after 7 enemas and plans to fast for a week so that his stem cells and regenerate. LR infusing 120/hr. Drinking water and tea. Abd tender to the touch and mild 1-2/10 pain at rest. Band-Aid type dressing to umbilicus site and 2 lap sites FORREST with Dermabond. SBA. Voiding.
[2020-06-18 12:00] VITALS: BP 104/61; PULSE 80; RESP 17; TEMP 37.2; O2SAT 95
[2020-06-18] MEDS: KETOROLAC 30 MG/ML VIAL IV ×2 (13:03→18:57)
[2020-06-18] MEDS: DEXTROSE 5%-LACTATED RINGERS 1,000 ML 100 ML IV (16:10)
[2020-06-18] MEDS: HYDROMORPHONE 1 MG INJ IV ×2 (16:14→18:57)
[2020-06-18 17:20] VITALS: BP 116/71; PULSE 107; RESP 17; TEMP 38.3; O2SAT 92
--- NOTE | 2020-06-18 18:19 | PM.PNPO.1 ---
Subjective Subjective Date Patient Seen: 06/18/20 Time Patient Seen: 18:19 Interval history: The patient was seen earlier and again this evening. He is feeling much better. Earlier he complained of pain and it appeared that the and medication was not controlling his pain adequately. I just increase the dose and he is feeling much better this evening. He had inquired seen his CT scan and this morning he was pretty sore trying to move so I waited till this evening and this evening he is a little sleepy from the pain medications I would rather wait. He drank a lot of fluids earlier today and got a little bloated he said. Advised him to slow down but to continue to drink which is due at slower. He says there is some pain with deep breathing but in general he is feeling better. Exam Vital Signs (past 8 hours): - 06/18/20 12:00 06/18/20 17:20 Temperature 98.9 F 100.9 F H Pulse Rate 80 107 H Respiratory Rate 17 17 Blood Pressure 104/61 116/71 Pulse Oximetry 95 92 Oxygen Delivery Method Room Air Oxygen Flow Rate 0 Narrative Exam Narrative: Not in any distress. Laying fairly still though. Moving air well. Good breath sounds in the bases. He does have some wincing with very deep breathing. His abdomen is distended but soft. Not unduly tender at this time. Objective Labs Result Diagrams: 06/18/20 04:53 06/18/20 04:53 Labs: Laboratory Results - last 24 hr 06/18/20 06/18/20 04:53 04:53 WBC 20.1 H RBC 4.10 L Hgb 12.5 L Hct 37.3 L MCV 90.9 MCH 30.4 MCHC 33.4 RDW 12.9 Plt Count 177 Neut % (Auto) 89.4 H Lymph % (Auto) 4.5 L [place] % (Auto) 5.9 Eos % (Auto) 0.0 L Baso % (Auto) 0.2 Neut # (Auto) 49060 H Lymph # (Auto) 900 L [place] # (Auto) 1200 H Eos # (Auto) 0 Baso # (Auto) 0 Sodium 135 L Potassium 4.0 Chloride 104 Carbon Dioxide 28 BUN 14 Creatinine 0.83 Estimated GFR > 60.0 BUN/Creatinine Ratio 16.9 Glucose 117 H Calcium 8.4 Phosphorus 3.9 Magnesium 2.0 PFSH Social History household members: spouse Smoking Status: Former smoker alcohol intake: current Assessment & Plan Post-op Postoperative Procedures: Procedures Operation Date: 06/17/20 12:00 Actual Procedures Side Surgeon p Laparoscopic Appendectomy Celestina Nolan MD Postoperative status narrative: Patient with a perforated appendicitis and extensive purulence in his abdomen. Temperature is up this evening. He is feeling a little more comfortable. Postoperative plan narrative: Continue broad-spectrum antibiotics. Labs in the morning. Encouraged to continue deep breathing. Ambulate. Quality VTE Deep Vein Thrombosis/Pulmonary Embolism Present on Admission: No
--- NOTE | 2020-06-18 20:40 | PC.NURSE ---
PATIENT REFUSED TYLENOL FOR 100.9
[2020-06-18 22:00] VITALS: BP 96/48; PULSE 102; RESP 17; TEMP 37.4; O2SAT 92
[2020-06-18] MEDS: OXYCODONE IR 10 MG TABLET PO (22:29)
[2020-06-19] VITALS (10 sets, daily range): BP systolic 102–130; BP diastolic 52–76; PULSE 91–105; RESP 14–20; TEMP 36.9–38.3; O2SAT 87–93
[2020-06-19] MEDS: ACETAMINOPHEN 325 MG TABLET 650 MG PO ×3 (00:53→20:22)
[2020-06-19] MEDS: HYDROMORPHONE 1 MG INJ IV ×7 (00:55→23:46)
[2020-06-19] MEDS: DEXTROSE 5%-LACTATED RINGERS 1,000 ML 100 ML IV ×2 (03:39→12:28)
[2020-06-19] MEDS: PIPERACILLIN-TAZO 3.375 GM/50 ML FROZ.PIGGY IV ×4 (04:15→23:47)
[2020-06-19 05:48] LABS: Add Manual Diff / Slide Review NO; Basophils Absolute Auto 0 /uL (0-100); Basophils Percent Auto 0.2 % (0-2); Eosinophils Absolute Auto 0 /uL (0-450); Hematocrit 35.8 % (41-53); Lymphocytes Absolute Auto 700 /uL (1100-4500); Lymphocytes Percent Auto 4.8 % (25-40); Mean Corpuscular HGB Conc 33.4 % (30-36); Mean Corpuscular Hemoglobin 30.4 PG (26-34); Mean Corpuscular Volume 91.3 fL (80-100); Monocytes Absolute Auto 500 /uL (0-900); Monocytes Percent Auto 3.8 % (3-14); Neutrophils Absolute Auto 12700 /uL (1500-7000); Neutrophils Percent Auto 91.2 % (50-75); Platelet Count 166 X10^3/uL (150-400); Red Blood Cell Count 3.93 X10^6/uL (4.5-5.9); Red Cell Distribution Width 12.9 % (11.6-14.8); White Blood Cell Count 13.9 X10^3/uL (4.5-11.0)
[2020-06-19 06:00] LABS: Alanine Aminotransferase 16 IU/L (<50); Albumin 3.2 g/dL (3.5-5.0); Albumin Globulin Ratio 1.1 (1.0-2.8); Alkaline Phosphatase 63 U/L (38-126); Aspartate Aminotransferase 19 IU/L (17-59); BUN Creatinine Ratio 17.6 (6-22); Bilirubin Total 0.4 mg/dL (0.2-1.3); Blood Urea Nitrogen 15 mg/dL (9-20); Calcium 8.3 mg/dL (8.4-10.2); Carbon Dioxide 30 mmol/L (22-32); Chloride 103 mmol/L (98-107); Estimated Glomerular Filt Rate > 60.0 mL/min (>60); Globulin 2.8 g/dL (1.7-4.1); Glucose 118 mg/dL (70-100); HEMOLYSIS < 15 (0-50); Potassium 3.6 mmol/L (3.4-5.1); Sodium 135 mmol/L (137-145)
[2020-06-19 06:01] LABS: Phosphorous 3.6 mg/dL (2.5-4.5)
[2020-06-19] MEDS: OXYCODONE IR 5 MG TABLET PO (08:46)
[2020-06-19] MEDS: ONDANSETRON 4 MG/2 ML INJ IV (09:28)
[2020-06-19] MEDS: ENOXAPARIN 40 MG/0.4 ML SYRINGE SUBCUT (09:40)
[2020-06-19 09:58] LABS: Procalcitonin 0.79 ng/mL (<0.5)
[2020-06-19] MEDS: OXYCODONE IR 10 MG TABLET PO ×2 (10:53→18:31)
[2020-06-19] MEDS: METOCLOPRAMIDE 10 MG/2 ML INJ IV ×2 (10:58→13:35)
--- NOTE | 2020-06-19 12:22 | PC.NURSE ---
Day shift: Pt ambulating well but needs help actually getting OOB in terms of getting to a sitting position. Once he is standing he is steady. Pt attempted a BM at approx 1130 today but ended up passing flatus and that has relieved some of his pain. He is currently asleep w/ no s/s of pain or discomfort. Call light in reach. Will continue w/ plan of care.
--- NOTE | 2020-06-19 14:32 | PM.PN.1 ---
Subjective Subjective Date Patient Seen: 06/19/20 Time Patient Seen: 15:55 Interval history: Patient complains of uncontrolled abdominal pain, which is diffuse, and most significant under his ribs on both sides. He denies passing any stool. Reports nausea, specifically with receiving pain medicine. He says he does not want to eat anything, and feels that fasting will improve his healing from surgery. Exam Vital Signs (past 8 hours): - 06/19/20 07:55 06/19/20 10:53 06/19/20 11:38 Temperature 100.6 F H 100.6 F H 100.9 F H Pulse Rate 102 H 96 H Respiratory Rate 19 14 Blood Pressure 123/76 120/72 Pulse Oximetry 87 L 88 L Oxygen Delivery Method Room Air Oxygen Flow Rate 0 Narrative Exam Narrative: GENERAL: Alert, in moderate distress due to nausea and pain CARDIOVASCULAR: Regular rate. No pedal edema. RESPIRATORY: Non-tachypneic, breathing comfortably on room air. GASTROINTESTINAL: Abdomen soft, moderately distended, which generalized tenderness SKIN: Warm, dry, soft, appropriate color for ethnicity. No other lesions, rashes, or wounds. NEURO: Alert and Oriented X 3. No gross sensory deficits, or cognitive issues. Objective Labs Result Diagrams: 06/19/20 05:22 06/19/20 05:22 Labs: Laboratory Results - last 24 hr 06/19/20 06/19/20 06/19/20 05:22 05:22 05:22 WBC 13.9 H RBC 3.93 L Hgb 12.0 L Hct 35.8 L MCV 91.3 MCH 30.4 MCHC 33.4 RDW 12.9 Plt Count 166 Neut % (Auto) 91.2 H Lymph % (Auto) 4.8 L [place] % (Auto) 3.8 Eos % (Auto) 0.0 L Baso % (Auto) 0.2 Neut # (Auto) 43320 H Lymph # (Auto) 700 L [place] # (Auto) 500 Eos # (Auto) 0 Baso # (Auto) 0 Sodium 135 L Potassium 3.6 Chloride 103 Carbon Dioxide 30 BUN 15 Creatinine 0.85 Estimated GFR > 60.0 BUN/Creatinine Ratio 17.6 Glucose 118 H Calcium 8.3 L Phosphorus 3.6 Magnesium 2.0 Total Bilirubin 0.4 AST 19 ALT 16 Alkaline Phosphatase 63 Total Protein 6.0 L Albumin 3.2 L Globulin 2.8 Albumin/Globulin Ratio 1.1 Procalcitonin 06/19/20 05:22 WBC RBC Hgb Hct MCV MCH MCHC RDW Plt Count Neut % (Auto) Lymph % (Auto) [place] % (Auto) Eos % (Auto) Baso % (Auto) Neut # (Auto) Lymph # (Auto) [place] # (Auto) Eos # (Auto) Baso # (Auto) Sodium Potassium Chloride Carbon Dioxide BUN Creatinine Estimated GFR BUN/Creatinine Ratio Glucose Calcium Phosphorus Magnesium Total Bilirubin AST ALT Alkaline Phosphatase Total Protein Albumin Globulin Albumin/Globulin Ratio Procalcitonin 0.79 H [facility] Social History household members: spouse Smoking Status: Former smoker alcohol intake: current Assessment & Plan Assessment and plan (1) Acute appendicitis: Qualifiers: Acute appendicitis type: unspecified acute appendicitis type Qualified Code(s): K35.80 - Unspecified acute appendicitis Status: Acute Assessment & Plan narrative: This is a 49-year-old man who is 2 days out from laparoscopic appendectomy and abdominal washout for severe acute appendicitis with perforation and purulent peritonitis. He has been doing minimal ambulation, and has been refusing p.o. intake with the purpose of improving his healing. Explained to him that he actually needs to taken calories and specifically protein to help with healing. I also recommended that he ambulate, and that we minimize narcotic pain medication to reduce the risk of ongoing ileus. His procalcitonin level is slightly elevated at 0.7, but is within the expected range. Given that his abdomen is distended and his pain is relatively generalized and bilateral, my suspicion that he has a focal abscess is relatively low, but not 0. We will recheck his procalcitonin and white blood cell count tomorrow after another 24 hours of antibiotics, and if it is not going down appropriately, we will consider a CT scan of the abdomen tomorrow. Plan: Pain med and antiemetic as needed, minimize narcotics as much as possible Clear liquid diet, advanced as tolerated Ambulate frequently Reglan for nausea/gut dysmotility Continue IV antibiotic Recheck labs in a.m. COVID-19 COVID-19 status: Negative Result date/Date tested (Pos, Neg/Pending): 06/17/20 Time Spent With Patient Time with patient: 15-24 minutes Quality VTE Deep Vein Thrombosis/Pulmonary Embolism Present on Admission: No
[2020-06-19] MEDS: KETOROLAC 30 MG/ML VIAL IV (15:34)
[2020-06-20] MEDS: DEXTROSE 5%-LACTATED RINGERS 1,000 ML 100 ML IV ×2 (01:05→12:07)
[2020-06-20] MEDS: HYDROMORPHONE 1 MG INJ IV ×4 (02:59→18:54)
[2020-06-20 03:18] VITALS: BP 126/72; PULSE 96; RESP 18; TEMP 37.6; O2SAT 92
[2020-06-20 05:32] LABS: Add Manual Diff / Slide Review NO; Basophils Absolute Auto 0 /uL (0-100); Basophils Percent Auto 0.4 % (0-2); Eosinophils Absolute Auto 100 /uL (0-450); Eosinophils Percent Auto 0.5 % (2-4); Hemoglobin 11.8 g/dL (13.5-17.5); Lymphocytes Absolute Auto 700 /uL (1100-4500); Lymphocytes Percent Auto 5.9 % (25-40); Mean Corpuscular HGB Conc 33.7 % (30-36); Mean Corpuscular Hemoglobin 30.6 PG (26-34); Mean Corpuscular Volume 90.9 fL (80-100); Monocytes Absolute Auto 800 /uL (0-900); Monocytes Percent Auto 7.3 % (3-14); Neutrophils Absolute Auto 9600 /uL (1500-7000); Neutrophils Percent Auto 85.9 % (50-75); Platelet Count 174 X10^3/uL (150-400); Red Blood Cell Count 3.85 X10^6/uL (4.5-5.9); White Blood Cell Count 11.2 X10^3/uL (4.5-11.0)
[2020-06-20 05:39] LABS: BUN Creatinine Ratio 18.2 (6-22); Blood Urea Nitrogen 16 mg/dL (9-20); Calcium 8.2 mg/dL (8.4-10.2); Carbon Dioxide 34 mmol/L (22-32); Chloride 102 mmol/L (98-107); Estimated Glomerular Filt Rate > 60.0 mL/min (>60); Glucose 125 mg/dL (70-100); HEMOLYSIS < 15 (0-50); Phosphorous 3.5 mg/dL (2.5-4.5); Potassium 3.7 mmol/L (3.4-5.1); Sodium 135 mmol/L (137-145)
--- NOTE | 2020-06-20 05:46 | DI.RAD.S_ITS ---
PROCEDURE: XR KUB INDICATIONS: abdominal distension, rule out ileus TECHNIQUE: One view of the abdomen acquired. COMPARISON: [facility], CT, CT ABDOMEN PELVIS W CON, 06/17/2020, 12:39. FINDINGS: Surgical changes and devices: None. Bowel: Multiple dilated loops of small bowel noted. Loops of small bowel are dilated up to 4.6 centimeters. Scattered air-fluid levels are noted several which have differential height. Soft tissues: No suspicious abdominal calcifications. Visualized solid organ contours appear normal in size. Bones: No suspicious bony lesions. IMPRESSION: Dilated loops of small bowel which could represent small bowel obstruction or ileus. Dictated by: Cristal Hammonds MD, PhD on 06/20/2020 at 8:59 Approved by: Cristal Hammonds MD, PhD on 06/20/2020 at 9:00
[2020-06-20 05:56] LABS: Procalcitonin 0.47 ng/mL (<0.5)
[2020-06-20] MEDS: PIPERACILLIN-TAZO 3.375 GM/50 ML FROZ.PIGGY IV ×3 (05:58→20:24)
--- NOTE | 2020-06-20 06:29 | PC.NURSE ---
Physician Underwriter Note-Patient continues to have increased abdominal pain overnight, states feeling like there is a leak or blockage somewhere, medicated with IV Dilaudid Q3h prn, declines offer of any other pain medication that are ordered, also refuses scheduled IV Reglan, PO intake approximately 50ml water, IVF continue D5LR @ 100ml/hr along with IV abx. Attempt to have BM, only passing little flatus, UOP 225ml tea colored. SpO2 on RA 87-92%, lung sounds dim in bases, otherwise clear, refuses use of O2 cannula.
--- NOTE | 2020-06-20 08:14 | PC.NURSE ---
Addendum entered by Naina Toro R.N. 06/20/20 14:31: COVID neg. Administered 1mg Dilaudid IV for 8/10 pain along with Reglan IV. Per Dr. Nolan instruction I placed a bottle of Ensure clear on bedside and pt was slowly sipping beverage.pt had XS BM (soft and green) and still reporting bloating and abd pain. Steady on feet with ambulation to BR. Addendum entered by Naina Toro R.N. 06/20/20 12:58: COVID nasal swab obtained and sent down for rule out re-test upon. Addendum entered by Naina Toro R.N. 06/20/20 12:51: pt arrived back to AC floor and into room around [address] Nolan. pt changed, in bed, LR at 100/hr infusing, water at bedside. Resting with ear plugs in. When asked about why he left, pt said he wanted to go for a walk and that his stomach was bloated. Dr. Nolan has talked with patient and over the phone and said she will round on patient when she is able to later today. Original Note: AM Shift note. pt was seen this AM at start of shift. Student nurse saw patient around 0745 changing into his personal pants when he asked for pain medications. Shortly there after I went into the room to assist and patient was not in room. No personal belongings were found in room. IV tubing was hung on pole but no PIV was located. I walked around the AC floor, down into the OR waiting area and into the ER area. I also looked into the parking lot and the ER entrance driving area without any luck. Charge nurse made aware and I called and left a VM on Dr. Nolan's cell phone.
--- NOTE | 2020-06-20 10:32 | CM.DPC ---
Addendum entered by SISSY Richey 06/20/20 13:28: ADD: Per RN, pt returned to get IV access removed safely and ended up agreeing to be re-admitted due to MD still recommending further medical stabilization and care prior to safe return home. Pt admitted back to the same hospital room he was in and now on the acute care floor for ongoing medical management by Surgeon. Plan: SW to follow closely to confirm safe plan of home with spouse when medically stable and any further identified needs. BF Original Note: DCP Elopement Per camp boss, pt left the hospital this morning without staff knowing likely around 0730 and then spouse called RN stating pt had walked home and still had IV access in his arm and felt that he could manage his appendicitis with food fasting. camp boss discussed that pt left without even getting AMA pwk and information regarding medical recommendations and spouse agreeable with bringing pt to ER to safely get IV access removed and pt and spouse willing to receive AMA pwk at that time and still feel pt does not need to be admitted but will follow up with Surgeon via phone regarding medications. SISSY Richey
[2020-06-20 11:40] VITALS: BP 136/86; PULSE 107; RESP 16; TEMP 37.3; O2SAT 92
--- NOTE | 2020-06-20 11:47 | PM.PN.1 ---
Subjective Subjective Date Patient Seen: 06/20/20 Time Patient Seen: 16:46 Interval history: No acute events overnight. The patient is passing gas and stool, and denies nausea. He is tolerating clears. He still feels quite distended and reports generalized pain in the abdomen. Exam Vital Signs (past 8 hours): Oxygen Delivery Method Room Air Oxygen Flow Rate 0 Narrative Exam Narrative: GENERAL: Alert, comfortable CARDIOVASCULAR: Regular rate. No pedal edema. RESPIRATORY: Non-tachypneic, breathing comfortably on room air. GASTROINTESTINAL: Abdomen soft, moderately distended, generalized tenderness, improved from yesterday SKIN: Warm, dry, soft, appropriate color for ethnicity. No other lesions, rashes, or wounds. Dressings intact NEURO: Alert and Oriented X 3. No gross sensory deficits, or cognitive issues. Objective Imaging Abdominal x-ray: My impression: KUB pretty moderate to severe ileus Radiologist's impression: KUB, ileus versus obstruction Labs Result Diagrams: 06/20/20 05:20 06/20/20 05:20 Labs: Laboratory Results - last 24 hr 06/20/20 06/20/20 06/20/20 05:20 05:20 05:20 WBC 11.2 H RBC 3.85 L Hgb 11.8 L Hct 35.0 L MCV 90.9 MCH 30.6 MCHC 33.7 RDW 13.0 Plt Count 174 Neut % (Auto) 85.9 H Lymph % (Auto) 5.9 L [place] % (Auto) 7.3 Eos % (Auto) 0.5 L Baso % (Auto) 0.4 Neut # (Auto) 9600 H Lymph # (Auto) 700 L [place] # (Auto) 800 Eos # (Auto) 100 Baso # (Auto) 0 Sodium 135 L Potassium 3.7 Chloride 102 Carbon Dioxide 34 H BUN 16 Creatinine 0.88 Estimated GFR > 60.0 BUN/Creatinine Ratio 18.2 Glucose 125 H Calcium 8.2 L Phosphorus 3.5 Magnesium 2.0 Procalcitonin 0.47 PFSH Social History household members: spouse Smoking Status: Former smoker alcohol intake: current Assessment & Plan Assessment and plan (1) Ileus following gastrointestinal surgery: Status: Acute (2) Peritonitis (acute) generalized: Status: Acute (3) Status post appendectomy: Status: Acute Assessment & Plan narrative: 49-year-old man postop day 3 from lap appy with purulent peritonitis, and fecal spillage from perforated appendix. He is doing slightly better today. His procalcitonin is coming down to normal today. He does still have some tenderness in the abdomen which is beyond the normal level for 3 days out from a lap appy, but somewhat more appropriate for the extensive nature of his intra-abdominal infection. His KUB looks like an ileus, which is not surprising given the amount of peritonitis that he had, in the amount of pain medicine he is taking. I explained to him that it could also be obstruction, from postoperative adhesions due to intense inflammation in the abdomen. We will get another KUB in the morning tomorrow, and watch his p.o. intake, and pain medicine requirement. If he continues to improve, and is able to tolerate p.o., continue to pass gas and stool, and pain can be managed with p.o. pain meds, we may be able to send him home tomorrow on p.o. antibiotics. Plan: Advance diet as tolerated DC IV fluid Pain meds as needed Attempt management with p.o. pain med only COVID-19 COVID-19 status: Negative Result date/Date tested (Pos, Neg/Pending): 06/17/20 Time Spent With Patient Time with patient: 15-24 minutes Quality VTE Deep Vein Thrombosis/Pulmonary Embolism Present on Admission: No
[2020-06-20 12:50] LABS: COVID19 -Nasal RAPID Negative (Negative)
[2020-06-20] MEDS: METOCLOPRAMIDE 10 MG/2 ML INJ IV ×2 (14:08→22:09)
[2020-06-20 15:42] VITALS: BP 110/60; PULSE 98; RESP 18; TEMP 37.5; O2SAT 90
[2020-06-20] MEDS: ACETAMINOPHEN 325 MG TABLET 650 MG PO (17:37)
[2020-06-20 20:00] VITALS: BP 126/62; PULSE 103; RESP 18; TEMP 36.9; O2SAT 91
[2020-06-20] MEDS: DOCUSATE 100 MG CAPSULE PO (20:24)
[2020-06-20] MEDS: OXYCODONE IR 5 MG TABLET PO (20:45)
[2020-06-20 23:40] VITALS: BP 116/77; PULSE 84; RESP 18; TEMP 37.2; O2SAT 92
[2020-06-21] MEDS: PIPERACILLIN-TAZO 3.375 GM/50 ML FROZ.PIGGY IV ×4 (01:38→21:23)
[2020-06-21] MEDS: HYDROMORPHONE 1 MG INJ IV ×2 (01:46→09:24)
[2020-06-21 04:00] VITALS: BP 113/73; PULSE 69; RESP 18; TEMP 37; O2SAT 94
[2020-06-21] MEDS: OXYCODONE IR 5 MG TABLET PO (04:23)
[2020-06-21] MEDS: IBUPROFEN 600 MG TABLET PO (04:23)
--- NOTE | 2020-06-21 05:00 | DI.RAD.S_ITS ---
PROCEDURE: XR KUB INDICATIONS: ileus TECHNIQUE: One view of the abdomen acquired. COMPARISON: [facility], , XR KUB, 06/20/2020, 5:52. FINDINGS: Surgical changes and devices: None. Bowel: Numerous dilated small bowel loops are again noted, measuring up to 4.9 cm in diameter. These are stable to slightly more prominent since yesterday. No specific transition point identified although the colon appears relatively decompressed. Soft tissues: No suspicious abdominal calcifications. Visualized solid organ contours appear normal in size. Bones: No suspicious bony lesions. IMPRESSION: Small-bowel obstruction (versus ileus) as before, stable to minimally progressed since the prior study from yesterday. Dictated by: Luis Pressley M.D. on 06/21/2020 at 8:49 Approved by: Luis Pressley M.D. on 06/21/2020 at 9:17
--- NOTE | 2020-06-21 05:02 | PC.NURSE ---
Pt. states getting little relief from oxycodone and ibuprofen, c/o esophagus irritation when swallowing the pills but not liquid. Pt. encouraged to ambulate when awake to help resolve his postop ileus, is reluctant to do it at this time. Also instructed pt. to take deep breaths, splint his abd. and cough to keep lungs clear and prevent atelectasis, also reluctant to do this due to pain. Pt. does have scattered fine crackles, informed him that he is at risk for pneumonia if he does not take CDB, will continue encouragement and pain control. Pt. so far no c/o N/V, BT's is very sluggish and is tolerating clear fluid during the night.
[2020-06-21] MEDS: METOCLOPRAMIDE 10 MG/2 ML INJ IV ×3 (06:04→21:23)
[2020-06-21 08:44] VITALS: BP 129/81; PULSE 78; RESP 16; TEMP 36.6; O2SAT 93
--- NOTE | 2020-06-21 09:00 | DI.RAD.S_ITS ---
PROCEDURE: [place] SMALL BOWEL FOLLOW THROUGH INDICATIONS: small bowel obstruction COMPARISON: None. 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 Small bowel: There is markedly delayed transit time of contrast material through the small bowel. Contrast is seen within the left colon at the conclusion of the study. There is still residual oral contrast material seen within stomach Small bowel loops are dilated. No definite transition point is identified. No strictures, intraluminal masses, or extrinsic mass effects are noted. IMPRESSION: Markedly delayed small bowel transit as detailed above. There is still residual contrast seen in the stomach at the conclusion of the examination. Dictated by: Luis Pressley M.D. on 06/22/2020 at 9:59 Approved by: Luis Pressley M.D. on 06/22/2020 at 10:04
[2020-06-21] MEDS: ENOXAPARIN 40 MG/0.4 ML SYRINGE SUBCUT (09:23)
--- NOTE | 2020-06-21 10:09 | PM.PN.1 ---
Subjective Subjective Date Patient Seen: 06/21/20 Time Patient Seen: 11:06 Interval history: No acute events overnight. Pt says he is still passing some gas. Had a small BM. Feels very full and bloated. Denies nause/vomiting. Exam Vital Signs (past 8 hours): - 06/21/20 04:00 06/21/20 08:44 Temperature 98.6 F 97.8 F Pulse Rate 69 78 Respiratory Rate 18 16 Blood Pressure 113/73 129/81 Pulse Oximetry 94 93 Oxygen Delivery Method Room Air Oxygen Flow Rate 0 Narrative Exam Narrative: GENERAL: Alert, comfortable CARDIOVASCULAR: Regular rate. No pedal edema. RESPIRATORY: Non-tachypneic, breathing comfortably on room air. GASTROINTESTINAL: Abdomen soft, moderately distended, generalized tenderness, improved from yesterday SKIN: Warm, dry, soft, appropriate color for ethnicity. No other lesions, rashes, or wounds. Dressings intact NEURO: Alert and Oriented X 3. No gross sensory deficits, or cognitive issues. Objective Imaging Abdominal x-ray: My impression: KUB: unchanged ileus/obstructive picture Labs Result Diagrams: 06/20/20 05:20 06/20/20 05:20 Labs: Laboratory Results - last 24 hr 06/20/20 12:19 SARS-CoV-2 (PCR) Negative [facility] Social History household members: spouse Smoking Status: Former smoker alcohol intake: current Assessment & Plan Assessment and plan (1) Ileus following gastrointestinal surgery: Status: Acute (2) Peritonitis (acute) generalized: Status: Acute (3) Status post appendectomy: Status: Acute Assessment & Plan narrative: 49-year-old man postop day 4 from [facility] with purulent peritonitis, and fecal spillage from perforated appendix. Plan: clears/fulls as tolerated restart IV fluids antiemetic, pain med IV abx Pain meds as needed SBFT today COVID-19 COVID-19 status: Negative Result date/Date tested (Pos, Neg/Pending): 06/17/20 Time Spent With Patient Time with patient: 15-24 minutes Quality VTE Deep Vein Thrombosis/Pulmonary Embolism Present on Admission: No
[2020-06-21 12:30] VITALS: BP 115/72; PULSE 70; RESP 16; TEMP 36.9; O2SAT 95
--- NOTE | 2020-06-21 15:57 | CM.DPC ---
DCP: assessment: case received, EMR reviewed. Note the attempt to leave AMA of yesterday with a return to the hospital later at encouragement of his . Note that pt has surgery 06/17 for acute perforated appendicitis and evacuation of large amount of purlulent fluid and stool and per care team report did not seem to understand the gravity of his medical situation. He is currently on IV Zosyn at every 8 hours. Plan to check in with him tomorrow.
[2020-06-21 16:06] VITALS: BP 146/85; PULSE 82; RESP 16; TEMP 37.1; O2SAT 92
[2020-06-21] MEDS: SODIUM CHLORIDE 0.9% 1,000 ML 100 ML IV (16:50)
[2020-06-21] MEDS: ONDANSETRON 4 MG/2 ML INJ IV (16:52)
[2020-06-21 20:05] VITALS: BP 136/81; PULSE 79; RESP 16; TEMP 37.2; O2SAT 92
--- NOTE | 2020-06-21 20:56 | PC.NURSE ---
Aid reported to room to find patient pushing buttons on IV pole. Nurse went in to talk to patient regarding his request to stop his IV fluids that Dr. Nolan had just spoke to patient about restarting. Patient states, these fluids are making my belly more distended and causing me to vomit. This nurse explained that fluids are ordered to help with prevention of dehydration given patient has been vomiting and diarrhea since he received PO contrast this AM. IV fluids were found to be turned off and patient was upset when nurse resumed fluids.
[2020-06-21] MEDS: KETOROLAC 30 MG/ML VIAL IV (22:38)
[2020-06-21 23:50] VITALS: BP 130/74; PULSE 85; RESP 18; TEMP 37.1; O2SAT 92
[2020-06-22] MEDS: PIPERACILLIN-TAZO 3.375 GM/50 ML FROZ.PIGGY IV (03:52)
[2020-06-22 04:42] VITALS: BP 124/75; PULSE 69; RESP 16; TEMP 36.6; O2SAT 93
[2020-06-22] MEDS: METOCLOPRAMIDE 10 MG/2 ML INJ IV (05:43)
[2020-06-22 08:00] VITALS: BP 131/83; PULSE 75; RESP 17; TEMP 37.3; O2SAT 90
--- NOTE | 2020-06-22 08:36 | PC.NURSE ---
Day shift: Pt back araceli AC unit from CT scan at approx 0835.
--- NOTE | 2020-06-22 08:55 | DI.CT.S_ITS ---
PROCEDURE: CT ABDOMEN PELVIS W CON INDICATIONS: bowel obstruction; pre op planning TECHNIQUE: After the administration of intravenous contrast, 5 mm thick sections acquired from the diaphragm to the symphysis. 5 mm coronal and sagittal reformats were acquired. For radiation dose reduction, the following was used: automated exposure control, adjustment of mA and/or kV according to patient size. COMPARISON: [facility], CR, XR KUB, 06/20/2020, 5:52. [facility], CR, XR KUB, 06/21/2020, 4:51. [facility], RF, [place] SMALL BOWEL FOLLOW THROUGH, 06/21/2020, 15:54. [facility], CT, CT ABDOMEN PELVIS W CON, 06/17/2020, 12:39. FINDINGS: Image quality: Excellent. ABDOMEN: Lung bases: Small pleural effusions bilaterally. Bibasilar opacities are most likely atelectasis. Heart size is normal. Mild coronary artery calcification. Solid organs: There is hepatic steatosis. Liver is normal in size and enhancement. Gallbladder is normal. Biliary system is non dilated. Pancreas enhances normally. Spleen is normal in size and enhancement. No adrenal nodules. Kidneys demonstrate normal size and enhancement, without hydronephrosis. Peritoneum and bowel: There is oral contrast in terminal ileum and throughout colon. Stomach is distended with an air-fluid level. Small bowel loops are distended with multiple air-fluid levels measuring up to 5.6 cm. There is a transitional point in the distal ileum in the right lower quadrant (series 2, image 53; series 4, image 39-40). There is mild irregularity and wall thickening of the distal ileum, as well as cecum. Appendix is absent consistent with appendectomy. There is a small amount of free fluid. No free air. Nodes and vessels: No retroperitoneal or mesenteric adenopathy by size criteria. Small mesenteric lymph nodes are most likely reactive. Aorta and inferior vena cava are normal in size. Miscellaneous: No ventral hernias. PELVIS: Genitourinary: Bladder wall thickness is normal. There is a tiny pocket of air within the bladder. Miscellaneous: No inguinal hernias or adenopathy. Bones: No suspicious bony lesions. No vertebral body compression fractures. IMPRESSION: 1. Majority of the oral contrast from a recent small bowel follow-through is within colon, arguing against high-grade small bowel obstruction. Stomach and small bowel loops are distended with air-fluid levels. There is a transitional point in the distal ileum. The CT findings are consistent with partial small bowel obstruction and ileus. 2. Mild irregularity and wall thickening of terminal ileum and cecum. Differential diagnoses include nonspecific postsurgical inflammation versus postsurgical infection. 3. A small amount of free fluid is present. No organized fluid collections to suggest abscess. 4. Small pleural effusions bilaterally. Bibasilar opacities are most likely atelectasis. Dictated by: Dixie Byrd M.D. on 06/22/2020 at 8:38 Approved by: Dixie Byrd M.D. on 06/22/2020 at 8:57
[2020-06-22 09:56] LABS: Add Manual Diff / Slide Review NO; Basophils Absolute Auto 0 /uL (0-100); Basophils Percent Auto 0.3 % (0-2); Eosinophils Absolute Auto 100 /uL (0-450); Eosinophils Percent Auto 0.5 % (2-4); Hemoglobin 13.9 g/dL (13.5-17.5); Lymphocytes Absolute Auto 900 /uL (1100-4500); Lymphocytes Percent Auto 8.2 % (25-40); Mean Corpuscular HGB Conc 33.9 % (30-36); Mean Corpuscular Hemoglobin 30.7 PG (26-34); Mean Corpuscular Volume 90.6 fL (80-100); Monocytes Absolute Auto 1900 /uL (0-900); Monocytes Percent Auto 17.6 % (3-14); Neutrophils Absolute Auto 8000 /uL (1500-7000); Neutrophils Percent Auto 73.4 % (50-75); Platelet Count 345 X10^3/uL (150-400); Red Blood Cell Count 4.53 X10^6/uL (4.5-5.9); Red Cell Distribution Width 12.8 % (11.6-14.8); White Blood Cell Count 10.9 X10^3/uL (4.5-11.0)
[2020-06-22 10:06] LABS: BUN Creatinine Ratio 29.5 (6-22); Blood Urea Nitrogen 23 mg/dL (9-20); Calcium 9.2 mg/dL (8.4-10.2); Carbon Dioxide 34 mmol/L (22-32); Chloride 96 mmol/L (98-107); Estimated Glomerular Filt Rate > 60.0 mL/min (>60); Glucose 112 mg/dL (70-100); HEMOLYSIS < 15 (0-50); Magnesium 2.4 mg/dL (1.6-2.3); Phosphorous 4.3 mg/dL (2.5-4.5); Potassium 3.1 mmol/L (3.4-5.1); Sodium 140 mmol/L (137-145)
--- NOTE | 2020-06-22 10:10 | PC.NURSE ---
Day shift: Call light on and this sign writer hand went into Pt's room to give morning meds and he is sitting in chair fully dressed and said I need a break. Was told that he should not leave and to wait for Dr Nolan to come and talk with him. It was explained to him the need for NG tube, NPO and PICC line per conversation w/ Dr Nolan. Pt stated he will wait for MD to come talk with him again. He also agreed to not leave w/o having his IV removed by RN. Sitting in chair and spouse is in room and seems agreeable to his wants of going home today. Will continue to monitor.
--- NOTE | 2020-06-22 10:27 | P.DS_ITS ---
History of Present Illness History of Present Illness Chief complaint: Abdominal Pain Narrative: This is a 49-year-old man who started having abdominal pain yesterday morning. It was generalized initially, and then became focal in the right lower quadrant. Nausea without vomiting. Has chills and subjective fever. Denies urinary complaints. Came into the ER and had a white count of 21, a fever of 102, and a CT scan consistent with acute appendicitis, with some periappendiceal fluid and fat stranding. He has never had colonoscopy. He has no primary relatives with known IBD, colon cancer, or colon polyps. He denies any personal history of GI symptoms, prior to this event. ROS: GENERAL: Complaint chills, denies fatigue, malaise, fever, complaint sweats. HEENT: Denies sinus pain, ear pain, sore throat RESPIRATORY: Denies dyspnea, cough CARDIOVASCULAR: Denies chest pain, palpitations GASTROINTESTINAL: Complains nausea, denies vomiting, complains abdominal pain : Denies dysuria, frequency, hematuria MUSCULOSKELETAL: denies muscle or bony pain SKIN: Denies rash, skin lesions NEUROLOGIC: Denies weakness, numbness Discharge Providers Provider Date of admission: 06/17/20 13:31 Discharge Date: 06/22/20 Consults: 06/17/20 16:41 Consult to Discharge Planning Routine Comment: Discharge provider: Celestina Nolan MD Summary Hospital Course Discharge Diagnosis: Acute appendicitis, post op ileus/PSBO due to inflammation/adhesions Hospital Course: The patient was taken to the OR emergently on Thursday and found to have perforated appendicitis with purulent peritonitis and fecal spillage. The appendix was removed and the abdomen was washed out. He had delayed return of bowel function, with some flatus but minimal PO tolerance and marked distension. KUB showed marked dilation of small bowel loops consistent with ileus/obstruction. SBFT showed contrast going through to colon, but very delayed with persistently dilated small bowel loops. CT scan was done, and showed thickening and narrowing at the terminal ileum/cecum, the site of surgery. The patient left AMA on the morning of POD3, and returned a few hours later. On POD#5 the patient left again AMA after recommendations were made for NGT, PICC and TPN due to partial obstruction on CT scan and poor return of bowel function. The patient left AMA after a lengthy discussion of the risks. Status at Discharge Cognitive/behavioral status at discharge: at baseline, oriented Functional status at discharge: independent ambulation Overall status at discharge: patient is not back to baseline Time Spent with Patient Time spent: Greater than 30 minutes Exam Vital Signs (past 8 hours): - 06/22/20 04:42 06/22/20 08:00 Temperature 97.8 F 99.2 F Pulse Rate 69 75 Respiratory Rate 16 17 Blood Pressure 124/75 131/83 Pulse Oximetry 93 90 L Oxygen Delivery Method Room Air Oxygen Flow Rate 0 Narrative Exam Narrative: GENERAL: Alert, comfortable CARDIOVASCULAR: Regular rate. No pedal edema. RESPIRATORY: Non-tachypneic, breathing comfortably on room air. GASTROINTESTINAL: Abdomen soft, moderately distended, generalized tenderness,similar to yesterday SKIN: Warm, dry, soft, appropriate color for ethnicity. No other lesions, rashes, or wounds. Dressings intact NEURO: Alert and Oriented X 3. No gross sensory deficits, or cognitive issues. Objective Imaging Abdominal x-ray: Radiologist's impression: [address] [id number] Scan ReportSigned Patient: Brandon Guzmán [facility]#: [id number]: 1970Acct:[id number]/Sex: 49 / MDate of Service: 06/22/20Lo: [id number] Number: [id number] Procedure: CT abdomen pelvis w con Ordering Provider: Celestina Nolan MD PROCEDURE: CT ABDOMEN PELVIS W CON INDICATIONS: bowel obstruction; pre op planning TECHNIQUE: After the administration of intravenous contrast, 5 mm thick sections acquired from the diaphragm to the symphysis. 5 mm coronal and sagittal reformats were acquired. For radiation dose reduction, the following was used: automated exposure control, adjustment of mA and/or kV according to patient size. COMPARISON: [facility], CR, XR KUB, 06/20/2020, 5:52. [facility], CR, XR KUB, 06/21/2020, 4:51. [facility], [place], [place] SMALL BOWEL FOLLOW THROUGH, 06/21/2020, 15:54. [facility], CT, CT ABDOMEN PELVIS W CON, 06/17/2020, 12:39. FINDINGS: Image quality: Excellent. ABDOMEN: Lung bases: Small pleural effusions bilaterally. Bibasilar opacities are most likely atelectasis. Heart size is normal. Mild coronary artery calcification. Solid organs: There is hepatic steatosis. Liver is normal in size and enhancement. Gallbladder is normal. Biliary system is non dilated. Pancreas enhances normally. Spleen is normal in size and enhancement. No adrenal nodules. Kidneys demonstrate normal size and enhancement, without hydronephrosis. Peritoneum and bowel: There is oral contrast in terminal ileum and throughout colon. Stomach is distended with an air-fluid level. Small bowel loops are distended with multiple air-fluid levels measuring up to 5.6 cm. There is a transitional point in the distal ileum in the right lower quadrant (series 2, image 53; series 4, image 39-40). There is mild irregularity and wall thickening of the distal ileum, as well as cecum. Appendix is absent consistent with appendectomy. There is a small amount of free fluid. No free air. Nodes and vessels: No retroperitoneal or mesenteric adenopathy by size criteria. Small mesenteric lymph nodes are most likely reactive. Aorta and inferior vena cava are normal in size. Miscellaneous: No ventral hernias. PELVIS: Genitourinary: Bladder wall thickness is normal. There is a tiny pocket of air within the bladder. Miscellaneous: No inguinal hernias or adenopathy. Bones: No suspicious bony lesions. No vertebral body compression fractures. IMPRESSION: 1. Majority of the oral contrast from a recent small bowel follow-through is within colon, arguing against high-grade small bowel obstruction. Stomach and small b owel loops are distended with air-fluid levels. There is a transitional point in the distal ileum. The CT findings are consistent with partial small bowel obstruction and ileus. 2. Mild irregularity and wall thickening of terminal ileum and cecum. Differential diagnoses include nonspecific postsurgical inflammation versus postsurgical infection. 3. A small amount of free fluid is present. No organized fluid collections to suggest abscess. 4. Small pleural effusions bilaterally. Bibasilar opacities are most likely atelectasis. Dictated by: Dixie Byrd M.D. on 06/22/2020 at 8:38 Approved by: Dixie Byrd M.D. on 06/22/2020 at 8:[address] [id number] ReportSigned Patient: Brandon Guzmán [facility]#: [id number]: 1970Acct:[id number]/Sex: 49 / MDate of Service: 06/21/20Lo: [id number] Number: [id number] Procedure: [place] small bowel follow through Ordering Provider: Celestina Nolan MD PROCEDURE: [place] SMALL BOWEL FOLLOW THROUGH INDICATIONS: small bowel obstruction COMPARISON: None. 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 Small bowel: There is markedly delayed transit time of contrast material through the small bowel. Contrast is seen within the left colon at the conclusion of the study. There is still residual oral contrast material seen within stomach Small bowel loops are dilated. No definite transition point is identified. No strictures, intraluminal masses, or extrinsic mass effects are noted. IMPRESSION: Markedly delayed small bowel transit as detailed above. There is still residual contrast seen in the stomach at the conclusion of the examination. Dictated by: Luis Pressley M.D. on 06/22/2020 at 9:59 Approved by: Luis Pressley M.D. on 06/22/2020 at 10:04 Labs Result Diagrams: 06/22/20 09:48 06/22/20 09:48 Labs: Laboratory Results - last 24 hr 06/22/20 06/22/20 06/22/20 09:48 09:48 09:48 WBC 10.9 RBC 4.53 Hgb 13.9 Hct 41.0 MCV 90.6 MCH 30.7 MCHC 33.9 RDW 12.8 Plt Count 345 Neut % (Auto) 73.4 Lymph % (Auto) 8.2 L [place] % (Auto) 17.6 H Eos % (Auto) 0.5 L Baso % (Auto) 0.3 Neut # (Auto) 8000 H Lymph # (Auto) 900 L [place] # (Auto) 1900 H Eos # (Auto) 100 Baso # (Auto) 0 Sodium 140 Potassium 3.1 L Chloride 96 L Carbon Dioxide 34 H BUN 23 H Creatinine 0.78 Estimated GFR > 60.0 BUN/Creatinine Ratio 29.5 H Glucose 112 H Calcium 9.2 Phosphorus 4.3 Magnesium 2.4 H PFSH Social History household members: spouse Smoking Status: Former smoker alcohol intake: current Discharge Assessment & Plan Assessment and Plan Assessment: Pt came in with acute perforated appendicitis with purulent and fecal peritonitis. He developed a post op ileus/partial obstruction secondary to extensive abdominal infection and inflammation. Recommendation was made for NGT/PICC/TPN. Pt declined this and elected to leave AMA. Plan of Treatment: Pt left AMA. Verbal recommendations were given to return if not able to keep down fluids and stay hydrated. Discharge plan was not completed prior to patient leaving. Discharge Plan Discharge Plan Patient Disposition: Home Discharge orders & Medications Follow up/Referrals: Celestina Nolan MD [Physician] - (Please make a follow up appointment to see me in the office at the earliest available appointment. ) Visit Report/Discharge Packet Instructions: Small Bowel Obstruction, DI for an Appendectomy, DI for Laparoscopy, [facility]: Wound Care Stand Alone Forms: Surgery Discharge Quality VTE Deep Vein Thrombosis/Pulmonary Embolism Present on Admission: No
--- NOTE | 2020-06-22 10:45 | PC.NURSE ---
Day shift: Pt left AC unit AMA and that paperwork was signed and in his chart. IV removed. Pt has all personal belongings. Ambulated to his car with this newspaper writer w/ no c/o pain or discomfort. Pt had no questions. Dr Nolan was able to talk w/ Pt's spouse briefly just prior to Pt leaving.
--- NOTE | 2020-06-22 10:53 | CM.DPC ---
DCP: continued: case discussed in Team Rounds this morning. A check after Rounds shows that pt again left AMA after encouragement from MANUEL Marcum and Dr. Nolan to stay and continue his treatment. His was here and took him home. They left before Rounds had ended.
== END 2020-06-22 10:46 | disposition left against medical advice (07) | DRG 339 ==
LOC: ED 13:19 → AC 13:43
PROVIDERS: Specialist; Admitting Provider Surgery; Emergency Provider Emergency Medicine; Referring Provider Emergency Medicine; Visit Provider Surgery
PROC: 0DTJ4ZZ Resection of Appendix, Percutaneous Endoscopic Approach (ICD-10-PCS; CPT 44970; principal; 2020-06-17 12:00)
DX: K35.21 Acute appendicitis with generalized peritonitis, with abscess (principal); K56.7 Ileus, unspecified; K56.51 Intestinal adhesions [bands], with partial obstruction; Z87.891 Personal history of nicotine dependence; Z20.822 Contact with and (suspected) exposure to COVID-19; Z91.19 Patient's noncompliance with other medical treatment and regimen
CPT/HCPCS: 36415; 44970; 74018; 74177; 74250; 80048; 80053; 83690; 83735; 84100; 84145; 85025; 85610; 85730; 87635; 96365; 96375; 99222; 99283; 99284; C9803; J0330; J0696; J1100; J1170; J1650; J1885; J2270; J2405; J2543; J2704; J2765; J3010; J7121; Q9967